=== PATIENT | female | born 1990 | race Caucasian/White ===

== ENCOUNTER 2018-09-30 12:59 | Day surgery (SDC) | payer BC ==
[~2018-09-30 12:59] MED LIST: ACETAMINOPHEN 1,000 MG/100 ML BTL IV ONE; CLINDAMYCIN PHOS/D5W 900MG 900 MG/50 ML BAG IVPB ONE; MORPHINE SULFATE 4 MG/ML VIAL ONE; SCOPOLAMINE 1 PATCH TDSY TD ONE
[2018-09-30] MEDS ORDERED: KETAMINE HCL 100MG/1ML VIAL INJ ONE (13:00)
[2018-09-30] MEDS ORDERED: PROPOFOL 10 MG/ML VIAL IV ONE (13:00)
[2018-09-30] MEDS ORDERED: LIDOCAINE 2% MDV (20MG/ML) 20ML VIAL IV ONE (13:00)
[2018-09-30] MEDS ORDERED: RINGERS SOLUTION,LACTATED 1,000 ML IV ONE (14:37)
[2018-09-30] MEDS ORDERED: METHYLPREDNISOLONE 40MG/VIAL IU ONE (16:00)
[2018-09-30] MEDS ORDERED: MORPHINE SULFATE 5 MG/ML PFS IVP ONE (16:00)
[2018-09-30] MEDS ORDERED: BUPIVACAINE 0.5% W/EPI MPF 30 ML VIAL SQ ONE (16:00)
[2018-09-30] MEDS ORDERED: HYDROCODONE/APAP 7.5/325MG TABLET PO ONE (16:38)
--- NOTE | 2018-10-01 12:30 | Operative Note ---
DATE OF SURGERY: 09/30/2018 PREOPERATIVE DIAGNOSIS: Internal derangement of the right knee. POSTOPERATIVE DIAGNOSES: 1. Chondral lesion of the patella. 2. Small fat pad impingement. 3. Small tear of the anterior horn of the medial meniscus. OPERATION: 1. Right knee arthroscopy with partial medial meniscectomy. 2. Right knee arthroscopy with chondroplasty of the patella and debridement of the fat pad. STAFF SURGEON: Marco King MD ANESTHESIA: General. PREPARATION: Chloraprep. INDIVIDUAL CONSIDERATIONS: None. PROCEDURE: The patient was taken to the operating room and placed supine on the operating room table. The patient had a successful induction with general anesthetic. The right lower extremity was prepped and draped in the usual fashion. The patient had a superolateral inflow cannula placed. Skin was infiltrated with 0.5% Marcaine with epinephrine prior. The knee was inflated with normal saline. An inferomedial and an inferolateral portal were made in a similar fashion. The arthroscope was introduced through the inferolateral portal up into the pouch. Patellofemoral joint showed a lesion on the patella I would say primarily medially based and superiorly based with peeling cartilage but luckily not down to bone. Loose cartilage was debrided back with a shaver. Total diameter is about the size of a nickel. Tracking was normal. Notch was normal. Medially there was a small flap tear involving the anterior horn of the medial meniscus of questionable significance but I debrided out. The remainder of the meniscus and articular cartilage were normal. In the notch, the cruciates were normal. Lateral compartment structures were normal. No loose bodies were seen in either gutter. The knee was then irrigated out with saline to remove loose floating debris. Portals were closed with anne marie, and 20 mL of 0.5% Marcaine with epinephrine along with 4 mg of morphine and 40 mg of Depo-Medrol was injected into the knee. A sterile bulky compressive dressing was applied. The patient tolerated the procedure well. Needle and sponge counts were correct. Estimated blood loss was minimal. She was taken back to recovery in good condition. There were no complications. DONTE
== END 2018-09-30 16:46 | disposition home or self-care (01) ==
LOC: SUR 12:59
PROVIDERS: ATTEND Orthopaedic Surgery
DX: S83.241A Other tear of medial meniscus, current injury, right knee, initial encounter (principal); M24.10 Other articular cartilage disorders, unspecified site; M25.861 Other specified joint disorders, right knee
CPT/HCPCS: 29881; 01400; 81025; J3490 ×2; J2270; J1030; J7120